=== PATIENT | female | born 1955 | race African-American/Black ===

== ENCOUNTER 2017-05-11 08:43 | Inpatient (IN) | payer OTHER ==
[~2017-05-11] VITALS: Ht 165.1 cm; Wt 47.8 kg
[2017-05-11] MEDS ORDERED: NORCO1 TA2 PO (11:39)
[2017-05-11] MEDS ORDERED: ASPIR 8181 MG PO (11:39)
[2017-05-11 11:51] LABS: BASOPHIL % 0.8 % (0-2)
[2017-05-11 11:59] LABS: PLATELET COUNT 407 x10^3mcL (130-400); RED CELL DISTRIBUTION WIDTH 15.7 % (11.5-14.5)
[2017-05-11 12:09] LABS: microscopic required? NO
[2017-05-11 12:16] LABS: UA SPECIFIC GRAVITY 1.015 (1.005-1.035); urine erythrocyte NEGATIVE (NEGATIVE)
[2017-05-11 12:47] LABS: CALCIUM 8.6 mg/dL (8.5-10.1); CARBON DIOXIDE 19.7 mmol/L (21-32); CHLORIDE SERUM 103 mmol/L (98-107); CREATININE SERUM 0.8 mg/dL (0.6-1.0); GFR1 > 60 mL/min; GLUCOSE SERUM 67 mg/dL (74-106); POTASSIUM SERUM 3.6 mmol/L (3.5-5.1); SODIUM SERUM 143 mmol/L (136-145)
[2017-05-11 12:51] LABS: ALBUMIN 3.5 g/dL (3.4-5.0); ALKALINE PHOSPHATASE 80 U/L (46-116); ALT/SGPT 28 U/L (14-59); AST/SGOT 40 U/L (15-37); BILIRUBIN TOTAL 0.71 mg/dL (0.20-1.00); TOTAL PROTEIN, SERUM 7.9 g/dL (6.4-8.2)
[2017-05-11 13:15] LABS: RED BLOOD CELLS 3.01 M/mm3 (4.10-5.10)
[2017-05-11 13:24] LABS: IRON 97 ug/dL (50-170); TOTAL IRON BINDING CAPACITY 237 ug/dL (250-450)
[2017-05-11 13:26] LABS: MAGNESIUM 1.2 mg/dL (1.8-2.4); PHOSPHOROUS 4.1 mg/dL (2.5-4.9)
[2017-05-11 13:27] LABS: CHOLESTEROL/HDL RATIO 2.1
[2017-05-11 13:30] LABS: T3 TOTAL 0.79 ng/mL
[2017-05-11 13:33] LABS: FREE THYROXINE INDEX 1.7 ug/dL (1.4-4.5); T4(THYROXINE) 5.3 ug/dL (4.7-13.3)
[2017-05-11 13:36] VITALS: BP 137/76
[2017-05-11 14:02] LABS: FREE T4 0.8 ng/dL (0.76-1.46)
[2017-05-11 16:59] VITALS: BP 116/65
[2017-05-11 19:30] LABS: AMPHETAMINE QUAL UR NONE DETECTED (NEG <=1000)
[2017-05-11 21:38] VITALS: BP 116/65
[2017-05-12 05:53] VITALS: BP 126/71
[2017-05-12 06:21] LABS: BASOPHIL % 0.9 % (0-2); PLATELET COUNT 346 x10^3mcL (130-400)
[2017-05-12 06:28] LABS: CALCIUM 7.7 mg/dL (8.5-10.1); CARBON DIOXIDE 22.4 mmol/L (21-32); CHLORIDE SERUM 103 mmol/L (98-107); CREATININE SERUM 0.5 mg/dL (0.6-1.0); GFR1 > 60 mL/min; GLUCOSE SERUM 77 mg/dL (74-106); POTASSIUM SERUM 3.5 mmol/L (3.5-5.1); SODIUM SERUM 139 mmol/L (136-145)
[2017-05-12 06:33] LABS: RED CELL DISTRIBUTION WIDTH 15.1 % (11.5-14.5)
[2017-05-12 07:02] LABS: rbc morphology (normal/abnorm) ABNORMAL (NORMAL)
[2017-05-12 09:28] VITALS: BP 152/79
[2017-05-12 13:32] VITALS: BP 145/78
[2017-05-12 17:43] VITALS: BP 123/64
[2017-05-12 21:44] VITALS: BP 146/81
[2017-05-13 06:23] VITALS: BP 139/85
[2017-05-13 06:49] LABS: CALCIUM 8.6 mg/dL (8.5-10.1); CARBON DIOXIDE 26.1 mmol/L (21-32); CHLORIDE SERUM 104 mmol/L (98-107); CREATININE SERUM 0.6 mg/dL (0.6-1.0); GFR1 > 60 mL/min; GLUCOSE SERUM 88 mg/dL (74-106); MAGNESIUM 1.5 mg/dL (1.8-2.4); POTASSIUM SERUM 3.1 mmol/L (3.5-5.1); SODIUM SERUM 141 mmol/L (136-145)
[2017-05-13 09:44] VITALS: BP 114/76
[2017-05-13 13:57] VITALS: BP 139/69
[2017-05-13 17:10] VITALS: BP 142/80
[2017-05-13] MEDS ORDERED: ZOF4 PO (17:15)
[2017-05-13] MEDS ORDERED: THERAGRAN-M1 TA4 PO (17:16)
[2017-05-13] MEDS ORDERED: NORCO1 TA2 PO (17:18)
[2017-05-13] MEDS ORDERED: ATI1 PO (17:21)
[2017-05-13] MEDS ORDERED: TOP50 PO (17:22)
[2017-05-13] MEDS ORDERED: COLACE100 MG PO (17:23)
[2017-05-13] MEDS ORDERED: TYL325 PO (17:26)
[2017-05-13 17:52] VITALS: BP 142/80
== END 2017-05-13 19:04 | disposition home health service (06) | DRG 775 ==
LOC: ED 08:43 → DU 11:42
PROVIDERS: Emergency Medicine; ADMIT Family Medicine
DX: F10.220 Alcohol dependence with intoxication, uncomplicated (principal); F10.230 Alcohol dependence with withdrawal, uncomplicated; G93.41 Metabolic encephalopathy; S32.402A Unspecified fracture of left acetabulum, initial encounter for closed fracture; D53.1 Other megaloblastic anemias, not elsewhere classified; E83.42 Hypomagnesemia; S70.02XA Contusion of left hip, initial encounter; M47.896 Other spondylosis, lumbar region; T51.0X1A Toxic effect of ethanol, accidental (unintentional), initial encounter; W18.39XA Other fall on same level, initial encounter; Z91.81 History of falling; Y93.89 Activity, other specified; Y92.018 Other place in single-family (private) house as the place of occurrence of the external cause; E78.5 Hyperlipidemia, unspecified; Z79.82 Long term (current) use of aspirin; S32.502A Unspecified fracture of left pubis, initial encounter for closed fracture; M19.90 Unspecified osteoarthritis, unspecified site
CPT/HCPCS: 83880; 84439; G0480; J1885; J2060; J2270; J3475; J3480; J7030; Q0092

== ENCOUNTER 2017-09-27 06:33 | Emergency (ER) | payer OTHER ==
[~2017-09-27] VITALS: Ht 165.1 cm; Wt 49.9 kg
[~2017-09-27 06:33] MED LIST: ASPIR 8181 MG PO; ATI1 PO; COLACE100 MG PO; NORCO1 TA2 PO; THERAGRAN-M1 TA4 PO; TOP50 PO; TYL325 PO; ZOF4 PO
[2017-09-27 07:14] VITALS: Ht 165.1 cm; Wt 49.9 kg
[2017-09-27 10:50] VITALS: BP 140/65
== END 2017-09-27 12:23 | disposition home or self-care (01) ==
LOC: ED 06:33
DX: S76.011A Strain of muscle, fascia and tendon of right hip, initial encounter (principal); W18.39XA Other fall on same level, initial encounter; Y93.89 Activity, other specified; Y92.89 Other specified places as the place of occurrence of the external cause; Y99.8 Other external cause status